=== PATIENT | male | born 1985 | race Caucasian/White ===

== ENCOUNTER 2022-10-03 21:44 | Inpatient (IN) | payer OTHER ==
[2022-10-03 22:53] VITALS: BMI 21.8
[2022-10-04] MEDS ORDERED: IBUPROFEN 600 MG TABLET (FP) PO PRN
[2022-10-04] MEDS ORDERED: NALOXONE HCL (KLOXXADO) 8 MG SPRAY NS PRN
[2022-10-04] MEDS ORDERED: BENZOCAINE/MENTHOL (CHLORASEPTIC ) LOZENGE MM PRN
[2022-10-04] MEDS ORDERED: METHOCARBAMOL 500 MG TABLET PO PRN
[2022-10-04] MEDS ORDERED: IBUPROFEN 400 MG TABLET (FP) PO PRN
[2022-10-04] MEDS ORDERED: MAGNESIUM HYDROX 2400MG/30ML ORAL SUSPENSION 30 ML CUP PO PRN
[2022-10-04] MEDS ORDERED: BISMUTH SUBSALICYLATE 524 MG/30 ML PO PRN
[2022-10-04] MEDS ORDERED: guaiFENesin 600 MG TABLET.ER (FP) PO PRN
[2022-10-04] MEDS ORDERED: BENZONATATE 200 MG CAPSULE PO PRN
[2022-10-04] MEDS ORDERED: NICOTINE 10 MG CARTRIDGE (INHALER) IH PRN
[2022-10-04] MEDS ORDERED: hydrOXYzine PAMOATE 25 MG CAPSULE (FP) PO PRN
[2022-10-04] MEDS ORDERED: ONDANSETRON *ODT* 4 MG TABLET SL PRN
[2022-10-04] MEDS ORDERED: LOPERAMIDE HCL 2 MG CAPSULE PO PRN
[2022-10-04] MEDS ORDERED: DICYCLOMINE HCL 10 MG CAPSULE PO PRN
[2022-10-04] MEDS ORDERED: MAG HYDROX/AL HYDROX/SIMETH 30 ML UNIT-DOSE CUP PO PRN
[2022-10-04] MEDS ORDERED: NALOXONE HCL 0.4 MG/ML VIAL IM PRN
[2022-10-04] MEDS ORDERED: ACETAMINOPHEN 325 MG TABLET (FP) PO PRN
[2022-10-04] MEDS ORDERED: POLYETHYLENE GLYCOL (HEALTHYLAX) 3350 17 GM PACKET PO PRN
[2022-10-04] MEDS ORDERED: NICOTINE POLACRILEX 2 MG GUM BUC PRN (00:06)
[2022-10-04] MEDS: PRENATAL VITAMINS W/ FOLIC ACID TABLET (FP) PO SCH (10:54)
[2022-10-04] MEDS: NICOTINE 14 MG/24 HOURS TOPICAL PATCH TD SCH (10:54)
[2022-10-04] MEDS ORDERED: MELATONIN 5 MG TABLETS PO SCH (22:00)
[2022-10-04] MEDS ORDERED: THIAMINE HCL 100 MG TABLET (FP) PO SCH (22:00)
[2022-10-04] MEDS: BUPRENORPHINE/NALOXONE 8 MG/2 MG FILM PACKET SL SCH (22:41)
[2022-10-05] MEDS ORDERED: GABAPENTIN 400 MG CAPSULE PO SCH (10:00)
[2022-10-05] MEDS: NICOTINE 14 MG/24 HOURS TOPICAL PATCH TD SCH (10:28)
[2022-10-05] MEDS: PRENATAL VITAMINS W/ FOLIC ACID TABLET (FP) PO SCH (10:28)
[2022-10-05] MEDS: BUPRENORPHINE/NALOXONE 8 MG/2 MG FILM PACKET SL SCH (10:28)
[2022-10-05 10:50] LABS: HEMOGLOBIN 14.9 GM/dL (11.7-16.9); MCH 30.5 pg (25.7-33.7); MCHC 34.8 g/dl (32.0-35.9); MEAN CELL VOLUME 87.6 fl (80-96); PLATELET COUNT 225 10^3/uL (134-434); RDW 13.4 % (11.9-15.9)
[2022-10-05 11:35] LABS: CALCIUM 9.6 mg/dL (8.5-10.1)
[2022-10-05 11:39] LABS: CREATININE 0.8 mg/dL (0.55-1.3)
[2022-10-05 11:40] LABS: BILIRUBIN,TOTAL 0.4 mg/dL (0.2-1); TOT PROT 6.8 g/dl (6.4-8.2)
[2022-10-05 18:43] VITALS: BP 127/78; PULSE 66; RESP 18; TEMP 96.7
== END 2022-10-05 20:25 | disposition other institution (70) | DRG 773 ==
LOC: YASAS 21:44 → UNDOADMIN 10-04 02:00 → Y3N 10-04 02:00
PROVIDERS: ADMIT Allergy & Immunology; ATTEND Surgery
PROC: HZ2ZZZZ Detoxification Services for Substance Abuse Treatment (ICD-10-PCS; principal; 2022-10-04)
DX: F10.230 Alcohol dependence with withdrawal, uncomplicated (principal); F11.20 Opioid dependence, uncomplicated; F14.20 Cocaine dependence, uncomplicated; F12.20 Cannabis dependence, uncomplicated; F17.210 Nicotine dependence, cigarettes, uncomplicated; Z86.19 Personal history of other infectious and parasitic diseases
CPT/HCPCS: 36415; 80053; 85027; 86780; 93005; 93010; C9803-CS; U0003; U0005

== ENCOUNTER 2022-10-05 18:14 | Inpatient (IN) | payer OTHER ==
[2022-10-05] MEDS ORDERED: COLLOIDAL OATMEAL 1 BAR EACH TP PRN (20:57)
[2022-10-05] MEDS ORDERED: NALOXONE HCL 0.4 MG/ML VIAL IVPUSH PRN (20:57)
[2022-10-05] MEDS ORDERED: guaiFENesin 600 MG TABLET.ER (FP) PO PRN (20:57)
[2022-10-05] MEDS ORDERED: METHOCARBAMOL 500 MG TABLET PO PRN (20:57)
[2022-10-05] MEDS ORDERED: NALOXONE HCL (KLOXXADO) 8 MG SPRAY NS PRN (20:57)
[2022-10-05] MEDS ORDERED: BENZOCAINE/MENTHOL (CHLORASEPTIC ) LOZENGE MM PRN (20:57)
[2022-10-05] MEDS ORDERED: MAG HYDROX/AL HYDROX/SIMETH 30 ML UNIT-DOSE CUP PO PRN (20:57)
[2022-10-05] MEDS ORDERED: LOPERAMIDE HCL 2 MG CAPSULE PO PRN (20:57)
[2022-10-05] MEDS ORDERED: POLYETHYLENE GLYCOL (HEALTHYLAX) 3350 17 GM PACKET PO PRN (20:57)
[2022-10-05] MEDS ORDERED: P-EPHED 60MG/TRIPROLIDI 2.5MG TABLET PO PRN (20:57)
[2022-10-05] MEDS ORDERED: MAGNESIUM HYDROX 2400MG/30ML ORAL SUSPENSION 30 ML CUP PO PRN (20:57)
[2022-10-05] MEDS ORDERED: AMMONIUM LACTATE 12% LOTION 225 GM BOTTLE TP PRN (20:57)
[2022-10-05] MEDS ORDERED: BENZONATATE 200 MG CAPSULE PO PRN (20:57)
[2022-10-05] MEDS: MELATONIN 5 MG TABLETS PO SCH (21:54)
[2022-10-05] MEDS: GABAPENTIN 400 MG CAPSULE PO SCH (21:54)
[2022-10-05] MEDS: THIAMINE HCL 100 MG TABLET (FP) PO SCH (21:54)
[2022-10-06] MEDS: GABAPENTIN 400 MG CAPSULE PO SCH ×2 (09:39→21:22)
[2022-10-06] MEDS: PRENATAL VITAMINS W/ FOLIC ACID TABLET (FP) PO SCH (09:39)
[2022-10-06] MEDS ORDERED: BUPRENORPHINE/NALOXONE 8 MG/2 MG FILM PACKET SL SCH (10:00)
[2022-10-06 12:15] LABS: HIV INTERPRETATION NEGATIVE (NEGATIVE)
[2022-10-06] MEDS: IBUPROFEN 400 MG TABLET (FP) PO PRN (21:22)
[2022-10-06] MEDS: THIAMINE HCL 100 MG TABLET (FP) PO SCH (21:22)
[2022-10-06] MEDS: MELATONIN 5 MG TABLETS PO SCH (21:22)
[2022-10-07] MEDS: IBUPROFEN 600 MG TABLET (FP) PO PRN (06:17)
[2022-10-07] MEDS: GABAPENTIN 400 MG CAPSULE PO SCH ×2 (09:34→21:13)
[2022-10-07] MEDS: PRENATAL VITAMINS W/ FOLIC ACID TABLET (FP) PO SCH (09:34)
[2022-10-07] MEDS: THIAMINE HCL 100 MG TABLET (FP) PO SCH (21:14)
[2022-10-07] MEDS: MELATONIN 5 MG TABLETS PO SCH (21:14)
[2022-10-08] MEDS: GABAPENTIN 400 MG CAPSULE PO SCH ×2 (09:38→21:28)
[2022-10-08] MEDS: PRENATAL VITAMINS W/ FOLIC ACID TABLET (FP) PO SCH (09:38)
[2022-10-08] MEDS: IBUPROFEN 600 MG TABLET (FP) PO PRN (13:12)
[2022-10-08] MEDS: MELATONIN 5 MG TABLETS PO SCH (21:29)
[2022-10-08] MEDS: THIAMINE HCL 100 MG TABLET (FP) PO SCH (21:29)
[2022-10-09] MEDS: IBUPROFEN 600 MG TABLET (FP) PO PRN (08:44)
[2022-10-09] MEDS: GABAPENTIN 400 MG CAPSULE PO SCH ×2 (09:39→21:16)
[2022-10-09] MEDS: PRENATAL VITAMINS W/ FOLIC ACID TABLET (FP) PO SCH (09:39)
[2022-10-09] MEDS: THIAMINE HCL 100 MG TABLET (FP) PO SCH (21:16)
[2022-10-09] MEDS: MELATONIN 5 MG TABLETS PO SCH (21:16)
[2022-10-10] MEDS: IBUPROFEN 600 MG TABLET (FP) PO PRN (08:34)
[2022-10-10] MEDS: PRENATAL VITAMINS W/ FOLIC ACID TABLET (FP) PO SCH (09:52)
[2022-10-10] MEDS: GABAPENTIN 400 MG CAPSULE PO SCH ×2 (09:52→21:19)
[2022-10-10] MEDS: ACETAMINOPHEN 325 MG TABLET (FP) PO PRN (21:19)
[2022-10-10] MEDS: THIAMINE HCL 100 MG TABLET (FP) PO SCH (21:19)
[2022-10-10] MEDS: MELATONIN 5 MG TABLETS PO SCH (21:19)
[2022-10-11] MEDS: ACETAMINOPHEN 325 MG TABLET (FP) PO PRN (06:08)
[2022-10-11] MEDS: PRENATAL VITAMINS W/ FOLIC ACID TABLET (FP) PO SCH (09:40)
[2022-10-11] MEDS: GABAPENTIN 400 MG CAPSULE PO SCH ×2 (09:40→21:21)
[2022-10-11] MEDS: THIAMINE HCL 100 MG TABLET (FP) PO SCH (21:22)
[2022-10-11] MEDS: MELATONIN 5 MG TABLETS PO SCH (21:22)
[2022-10-12] MEDS: GABAPENTIN 400 MG CAPSULE PO SCH ×2 (09:47→21:32)
[2022-10-12] MEDS: PRENATAL VITAMINS W/ FOLIC ACID TABLET (FP) PO SCH (09:47)
[2022-10-12] MEDS: ACETAMINOPHEN 325 MG TABLET (FP) PO PRN (16:46)
[2022-10-12] MEDS: hydrOXYzine PAMOATE 25 MG CAPSULE (FP) PO PRN (21:32)
[2022-10-12] MEDS: THIAMINE HCL 100 MG TABLET (FP) PO SCH (21:32)
[2022-10-12] MEDS: MELATONIN 5 MG TABLETS PO SCH (21:33)
[2022-10-12] MEDS: IBUPROFEN 400 MG TABLET (FP) PO PRN (23:07)
[2022-10-13] MEDS ORDERED: BENZOCAINE 20 % GEL TUBE MM PRN (00:16)
[2022-10-13] MEDS: ACETAMINOPHEN 325 MG TABLET (FP) PO PRN (06:13)
[2022-10-13] MEDS: PRENATAL VITAMINS W/ FOLIC ACID TABLET (FP) PO SCH (10:00)
[2022-10-13] MEDS: GABAPENTIN 400 MG CAPSULE PO SCH ×2 (10:00→21:37)
[2022-10-13] MEDS: IBUPROFEN 400 MG TABLET (FP) PO PRN ×2 (10:01→21:37)
[2022-10-13] MEDS: THIAMINE HCL 100 MG TABLET (FP) PO SCH (21:37)
[2022-10-13] MEDS: hydrOXYzine PAMOATE 25 MG CAPSULE (FP) PO PRN (21:37)
[2022-10-13] MEDS: MELATONIN 5 MG TABLETS PO SCH (21:38)
[2022-10-14] MEDS: PRENATAL VITAMINS W/ FOLIC ACID TABLET (FP) PO SCH (09:58)
[2022-10-14] MEDS: GABAPENTIN 400 MG CAPSULE PO SCH ×2 (09:58→21:26)
[2022-10-14] MEDS: MELATONIN 5 MG TABLETS PO SCH (21:26)
[2022-10-14] MEDS: hydrOXYzine PAMOATE 25 MG CAPSULE (FP) PO PRN (21:26)
[2022-10-14] MEDS: THIAMINE HCL 100 MG TABLET (FP) PO SCH (21:26)
[2022-10-15] MEDS: PRENATAL VITAMINS W/ FOLIC ACID TABLET (FP) PO SCH (09:59)
[2022-10-15] MEDS: GABAPENTIN 400 MG CAPSULE PO SCH ×2 (09:59→21:03)
[2022-10-15] MEDS: ACETAMINOPHEN 325 MG TABLET (FP) PO PRN (10:00)
[2022-10-15] MEDS: IBUPROFEN 400 MG TABLET (FP) PO PRN (18:05)
[2022-10-15] MEDS: THIAMINE HCL 100 MG TABLET (FP) PO SCH (21:03)
[2022-10-15] MEDS: hydrOXYzine PAMOATE 25 MG CAPSULE (FP) PO PRN (21:04)
[2022-10-15] MEDS: MELATONIN 5 MG TABLETS PO SCH (21:59)
[2022-10-16] MEDS: GABAPENTIN 400 MG CAPSULE PO SCH ×2 (09:36→21:13)
[2022-10-16] MEDS: PRENATAL VITAMINS W/ FOLIC ACID TABLET (FP) PO SCH (09:36)
[2022-10-16] MEDS: IBUPROFEN 400 MG TABLET (FP) PO PRN (17:56)
[2022-10-16] MEDS: THIAMINE HCL 100 MG TABLET (FP) PO SCH (21:13)
[2022-10-16] MEDS: MELATONIN 5 MG TABLETS PO SCH (21:13)
[2022-10-16] MEDS: hydrOXYzine PAMOATE 25 MG CAPSULE (FP) PO PRN (21:13)
[2022-10-17] MEDS: IBUPROFEN 400 MG TABLET (FP) PO PRN ×3 (07:16→21:14)
[2022-10-17] MEDS: PRENATAL VITAMINS W/ FOLIC ACID TABLET (FP) PO SCH (09:47)
[2022-10-17] MEDS: GABAPENTIN 400 MG CAPSULE PO SCH ×2 (09:48→21:13)
[2022-10-17] MEDS: AMOX TR/POT CLAV 875MG/125MG TABLETS (FP) PO SCH (17:35)
[2022-10-17] MEDS: THIAMINE HCL 100 MG TABLET (FP) PO SCH (21:13)
[2022-10-17] MEDS: hydrOXYzine PAMOATE 25 MG CAPSULE (FP) PO PRN (21:13)
[2022-10-17] MEDS: MELATONIN 5 MG TABLETS PO SCH (22:48)
[2022-10-18] MEDS: IBUPROFEN 400 MG TABLET (FP) PO PRN ×3 (06:06→21:32)
[2022-10-18] MEDS: AMOX TR/POT CLAV 875MG/125MG TABLETS (FP) PO SCH ×2 (07:15→18:06)
[2022-10-18] MEDS: PRENATAL VITAMINS W/ FOLIC ACID TABLET (FP) PO SCH (10:04)
[2022-10-18] MEDS: GABAPENTIN 400 MG CAPSULE PO SCH ×2 (10:04→21:30)
[2022-10-18] MEDS: MELATONIN 5 MG TABLETS PO SCH (21:30)
[2022-10-18] MEDS: THIAMINE HCL 100 MG TABLET (FP) PO SCH (21:30)
[2022-10-18] MEDS: hydrOXYzine PAMOATE 25 MG CAPSULE (FP) PO PRN (21:32)
[2022-10-19] MEDS: ACETAMINOPHEN 325 MG TABLET (FP) PO PRN (01:28)
[2022-10-19 07:02] VITALS: BP 131/85; PULSE 78; RESP 18; TEMP 97.8
[2022-10-19] MEDS: AMOX TR/POT CLAV 875MG/125MG TABLETS (FP) PO SCH (07:08)
[2022-10-19] MEDS: IBUPROFEN 400 MG TABLET (FP) PO PRN (07:10)
[2022-10-19] MEDS: PRENATAL VITAMINS W/ FOLIC ACID TABLET (FP) PO SCH (09:32)
[2022-10-19] MEDS: GABAPENTIN 400 MG CAPSULE PO SCH (09:32)
== END 2022-10-19 10:14 | disposition home or self-care (01) | DRG 772 ==
LOC: YASAS 18:14 → Y3E 18:19 → Y3W 10-18 20:55
PROVIDERS: ADMIT Allergy & Immunology; ATTEND Psychiatry & Neurology Pain Medicine
PROC: HZ42ZZZ Group Counseling for Substance Abuse Treatment, Cognitive-Behavioral (ICD-10-PCS; principal; 2022-10-05)
DX: F10.20 Alcohol dependence, uncomplicated (principal); F14.20 Cocaine dependence, uncomplicated; F11.20 Opioid dependence, uncomplicated; F17.210 Nicotine dependence, cigarettes, uncomplicated; F19.282 Other psychoactive substance dependence with psychoactive substance-induced sleep disorder; K08.89 Other specified disorders of teeth and supporting structures; Z86.59 Personal history of other mental and behavioral disorders; Z86.19 Personal history of other infectious and parasitic diseases; Z87.828 Personal history of other (healed) physical injury and trauma; Z56.0 Unemployment, unspecified; Z59.00 Homelessness unspecified
CPT/HCPCS: 36415; 82962; 87389